=== PATIENT | male | born 1975 ===

== ENCOUNTER 2020-11-03 13:36 | Inpatient (IN) ==
[2020-11-03 20:05] LABS: Basophils % 0.1 % (0.0-0.8); Eosinophils % 0.3 % (0.00-10.9); Hematocrit 20.4 VOL% (42.0-52.0); Hemoglobin 6.8 GM/DL (14.0-18.0); Immature Granulocytes % 1.3 %; Immature Granulocytes Absolute 0.09 #; Lymphocytes # 0.6 10*3/uL (1.4-4.0); Lymphocytes % 8.4 % (21.2-54.2); Mean Corpuscular HGB Conc 33.3 GM/DL (32-36); Mean Corpuscular Volume 93.2 FL (87-102); Mean Platelet Volume 10.3 FL (9.6-12.0); Monocytes % 6.1 % (1.7-12.7); Neutrophils % 83.8 % (38.7-73.9); Platelet Count 125 T/CUMM (130-400); Red Blood Count 2.19 MC/CUMM (3.8-5.5); Red Cell Distribution Width 13.4 % (9.3-17.3); White Blood Count 7.2 T/CUMM (4-12)
[2020-11-03 20:15] LABS: Alanine Aminotransferase 15 U/L (16-61); Albumin 2.6 G/DL (3.4-5.0); Alkaline Phosphatase 74 U/L (45-117); Aspartate Amino Transferase 14 U/L (0-37); Bilirubin,Total < 0.39 MG/DL (0.2-1.0); Blood Urea Nitrogen 144 MG/DL (7-18); Carbon Dioxide 10 MMOL/L (21-32); Estimated Glom Filtration Rate 3 ML/MIN; Glucose 164 MG/DL (74-106); Osmolality,Calculated 327.5 MOS/KG (273-304); Sodium 139 MMOL/L (136-145); Total Protein 6.3 G/DL (5.0-7.5)
[2020-11-03 20:17] LABS: Calcium 5.8 MG/DL (8.5-10.1)
[2020-11-03 20:45] LABS: Partial Thromboplastin Time 33.8 SECS (23.9-33.8)
[2020-11-03] MEDS ORDERED: DEXTROSE 50% 25 GM/50 ML VIAL IV PRN (21:02)
[2020-11-03] MEDS ORDERED: GLUCAGON 1 MG VIAL IM PRN (21:02)
[2020-11-03] MEDS ORDERED: SODIUM POLYSTYRENE SULFATE 15 GM/60 ML BOTTLE PO ONE (21:12)
[2020-11-03] MEDS ORDERED: CALCIUM GLUCONATE 2,000 MG in SODIUM CHLORIDE 0.9% 100 ML IV ONE (22:00)
[2020-11-03 22:39] LABS: Bilirubin,Urine Negative (Negative); Blood, Urine Moderate mg/dL (Negative); Glucose,Urine (UA) 150 mg/dL (Negative); Ketones,Urine Negative (Negative); Nitrite,Urine Negative (Negative); Protein,Urine 100 MG/DL; RBC,Urine 23 /HPF (0-4); Squamous Epithelial Cell,Urine Occasional /HPF (0-10); Urine Appearance CLOUDY (Clear); Urine Color Yellow (Yellow); Urine Specific Gravity 1.011 (1.001-1.035); Urine Urobilinogen < 2.0 EU/DL (0.2-1.0); WBC,Urine 6 /HPF (0-6)
[2020-11-04] MEDS: INSULIN REGULAR 100 UNIT/ML SUBCUT SCH ×5 (00:16→20:16)
[2020-11-04 05:54] LABS: Basophils % 0.2 % (0.0-0.8); Eosinophils % 0.4 % (0.00-10.9); Hematocrit 21.2 VOL% (42.0-52.0); Hemoglobin 6.9 GM/DL (14.0-18.0); Immature Granulocytes % 1.4 %; Immature Granulocytes Absolute 0.11 #; Lymphocytes # 0.6 10*3/uL (1.4-4.0); Lymphocytes % 7.4 % (21.2-54.2); Mean Corpuscular HGB Conc 32.5 GM/DL (32-36); Mean Corpuscular Volume 93.4 FL (87-102); Mean Platelet Volume 10.9 FL (9.6-12.0); Monocytes % 6.3 % (1.7-12.7); Neutrophils % 84.3 % (38.7-73.9); Platelet Count 140 T/CUMM (130-400); Red Blood Count 2.27 MC/CUMM (3.8-5.5); Red Cell Distribution Width 13.2 % (9.3-17.3); White Blood Count 8.1 T/CUMM (4-12)
[2020-11-04 06:19] LABS: Risk Ratio 2.23; VLDL CHOLESTEROL 10.2 MG/DL
[2020-11-04 09:55] LABS: Calcium 6.3 MG/DL (8.5-10.1); Osmolality,Calculated 323.8 MOS/KG (273-304)
[2020-11-04 09:58] LABS: Potassium 6.1 MMOL/L (3.5-5.1)
[2020-11-04] MEDS: PANTOPRAZOLE 40 MG TABLET PO SCH (10:27)
[2020-11-04 11:19] LABS: Hepatitis B Core IgM Quant < 0.05 Index; Hepatitis B Surface Ag Quant < 0.10 Index; Hepatitis B Surface Ag Result Non-Reactive (NonReactive); Hepatitis C Virus Ab Quant 0.16 Index; Hepatitis C Virus Ab Result Non-Reactive (NonReactive)
[2020-11-04] MEDS: ONDANSETRON 4 MG/2 ML VIAL IV PRN (11:54)
[2020-11-04] MEDS ORDERED: ceFAZolin 1,000 MG in SYRINGE 1 EACH IV ONE (12:15)
[2020-11-04] MEDS ORDERED: SODIUM BICARBONATE 50 MEQ/50 ML SYRINGE IV ONE (14:36)
[2020-11-04] MEDS ORDERED: LIDOCAINE 1%/EPI INJ 20 ML VIAL ONE (15:11)
[2020-11-04] MEDS ORDERED: BUPIVACAINE MPF 0.25% 30 ML VIAL ONE (15:11)
[2020-11-04] MEDS ORDERED: HEPARIN 5,000 UNIT/1 ML VIAL ONE (15:26)
[2020-11-04] MEDS ORDERED: KETAMINE 500 MG/10 ML VIAL ONE (15:47)
[2020-11-04] MEDS ORDERED: DEXMEDETOMIDINE 200 MCG/2 ML VIAL ONE (15:47)
[2020-11-04] MEDS ORDERED: SODIUM CHLORIDE 0.9% 500 ML IV ONE (16:15)
[2020-11-04] MEDS ORDERED: hydrALAZINE 20 MG/1 ML VIAL ONE (16:17)
[2020-11-04] MEDS ORDERED: TISSUE ADHESIVE 1 EACH APPLICATOR TOP ONE (16:18)
[2020-11-04] MEDS: SODIUM BICARBONATE 650 MG TABLET PO SCH (22:18)
[2020-11-05 04:32] LABS: Basophils % 0.2 % (0.0-0.8); Eosinophils % 0.3 % (0.00-10.9); Hematocrit 18.2 VOL% (42.0-52.0); Immature Granulocytes % 0.6 %; Immature Granulocytes Absolute 0.04 #; Lymphocytes # 0.3 10*3/uL (1.4-4.0); Lymphocytes % 4.2 % (21.2-54.2); Mean Corpuscular HGB Conc 34.1 GM/DL (32-36); Mean Platelet Volume 10.8 FL (9.6-12.0); Monocytes % 6.4 % (1.7-12.7); Neutrophils % 88.3 % (38.7-73.9); Platelet Count 121 T/CUMM (130-400); White Blood Count 6.6 T/CUMM (4-12)
[2020-11-05 04:50] LABS: Calcium 6.2 MG/DL (8.5-10.1); Osmolality,Calculated 307.7 MOS/KG (273-304); Potassium 3.9 MMOL/L (3.5-5.1)
[2020-11-05 04:56] LABS: Hemoglobin 6.2 GM/DL (14.0-18.0)
[2020-11-05 05:03] LABS: Lymphocytes 4 % (20-55); Segmented Neutrophils 90 % (50-85); Total Cells Counted 100
[2020-11-05 05:04] LABS: Hypochromasia 2+; Microcytosis 1+
[2020-11-05 05:04] LABS: Albumin 2.6 G/DL (3.4-5.0); Calcium 6.1 MG/DL (8.5-10.1); Osmolality,Calculated 312.3 MOS/KG (273-304)
[2020-11-05] MEDS: INSULIN REGULAR 100 UNIT/ML SUBCUT SCH (08:01)
[2020-11-05] MEDS ORDERED: SODIUM CHLORIDE 0.9% 1,000 ML IV PRN (08:36)
[2020-11-05] MEDS: PANTOPRAZOLE 40 MG TABLET PO SCH (10:14)
[2020-11-05] MEDS: SODIUM BICARBONATE 650 MG TABLET PO SCH ×2 (10:15→20:51)
[2020-11-05] MEDS: carvediloL 12.5 MG TABLET PO SCH ×2 (14:50→20:51)
[2020-11-05] MEDS ORDERED: chlorproMAZINE 25 MG TABLET PO PRN (17:16)
[2020-11-05] MEDS: ISOSORBIDE MONONITRATE 30 MG TABLET PO SCH (20:52)
[2020-11-06 05:54] LABS: Basophils % 0.2 % (0.0-0.8); Eosinophils # 0.1 10*3/uL (0.0-0.87); Eosinophils % 1.4 % (0.00-10.9); Hematocrit 20.7 VOL% (42.0-52.0); Immature Granulocytes % 0.5 %; Immature Granulocytes Absolute 0.03 #; Lymphocytes # 0.5 10*3/uL (1.4-4.0); Lymphocytes % 7.5 % (21.2-54.2); Mean Corpuscular HGB Conc 33.8 GM/DL (32-36); Mean Platelet Volume 11.1 FL (9.6-12.0); Monocytes % 8.2 % (1.7-12.7); Neutrophils % 82.2 % (38.7-73.9); Platelet Count 105 T/CUMM (130-400); Red Cell Distribution Width 13.4 % (9.3-17.3); White Blood Count 6.6 T/CUMM (4-12)
[2020-11-06 06:12] LABS: Osmolality,Calculated 313.4 MOS/KG (273-304); Potassium 3.7 MMOL/L (3.5-5.1)
[2020-11-06 06:19] LABS: Albumin 2.4 G/DL (3.4-5.0); Osmolality,Calculated 309.5 MOS/KG (273-304); Potassium 3.7 MMOL/L (3.5-5.1)
[2020-11-06] MEDS: SODIUM BICARBONATE 650 MG TABLET PO SCH ×2 (08:28→21:23)
[2020-11-06] MEDS: ISOSORBIDE MONONITRATE 30 MG TABLET PO SCH ×2 (08:28→21:23)
[2020-11-06] MEDS: FAMOTIDINE 20 MG TABLET PO SCH (08:28)
[2020-11-06] MEDS: carvediloL 12.5 MG TABLET PO SCH ×2 (08:29→21:23)
[2020-11-06] MEDS ORDERED: METOCLOPRAMIDE 10 MG/10 ML UDCUP PO SCH (09:00)
[2020-11-06] MEDS ORDERED: PANTOPRAZOLE 40 MG TABLET PO SCH (09:00)
[2020-11-06] MEDS ORDERED: METOPROLOL TARTRATE 100 MG TABLET PO SCH (09:00)
[2020-11-06] MEDS ORDERED: HEPARIN 10,000 UNIT/10 ML VIAL IV SCH (13:00)
[2020-11-06] MEDS: ONDANSETRON 4 MG/2 ML VIAL IV PRN (23:28)
[2020-11-07 05:57] LABS: Basophils % 0.1 % (0.0-0.8); Eosinophils % 0.1 % (0.00-10.9); Hematocrit 24.1 VOL% (42.0-52.0); Hemoglobin 8.2 GM/DL (14.0-18.0); Immature Granulocytes % 0.5 %; Immature Granulocytes Absolute 0.04 #; Lymphocytes # 0.4 10*3/uL (1.4-4.0); Lymphocytes % 5.3 % (21.2-54.2); Mean Corpuscular Volume 88.9 FL (87-102); Mean Platelet Volume 11.1 FL (9.6-12.0); Platelet Count 119 T/CUMM (130-400); Red Blood Count 2.71 MC/CUMM (3.8-5.5); Red Cell Distribution Width 13.6 % (9.3-17.3); White Blood Count 7.8 T/CUMM (4-12)
[2020-11-07 06:16] LABS: Albumin 2.5 G/DL (3.4-5.0); Calcium 6.7 MG/DL (8.5-10.1); Osmolality,Calculated 288.7 MOS/KG (273-304); Potassium 3.7 MMOL/L (3.5-5.1)
[2020-11-07] MEDS: SEVELAMER CARBONATE 800 MG TABLET PO SCH ×3 (08:56→16:42)
[2020-11-07] MEDS: ISOSORBIDE MONONITRATE 30 MG TABLET PO SCH ×2 (08:56→21:14)
[2020-11-07] MEDS: SODIUM BICARBONATE 650 MG TABLET PO SCH ×2 (08:56→21:14)
[2020-11-07] MEDS: FAMOTIDINE 20 MG TABLET PO SCH (08:56)
[2020-11-07] MEDS: carvediloL 12.5 MG TABLET PO SCH ×2 (08:56→21:14)
[2020-11-07] MEDS: METOCLOPRAMIDE 10 MG/10 ML UDCUP PO SCH ×2 (16:42→21:14)
[2020-11-08 05:46] LABS: Basophils % 0.2 % (0.0-0.8); Eosinophils # 0.1 10*3/uL (0.0-0.87); Eosinophils % 1.6 % (0.00-10.9); Hematocrit 24.6 VOL% (42.0-52.0); Hemoglobin 8.2 GM/DL (14.0-18.0); Immature Granulocytes % 0.5 %; Immature Granulocytes Absolute 0.03 #; Lymphocytes # 0.7 10*3/uL (1.4-4.0); Lymphocytes % 12.3 % (21.2-54.2); Mean Corpuscular HGB Conc 33.3 GM/DL (32-36); Mean Corpuscular Volume 89.5 FL (87-102); Mean Platelet Volume 11.1 FL (9.6-12.0); Monocytes % 14.5 % (1.7-12.7); Neutrophils % 70.9 % (38.7-73.9); Platelet Count 113 T/CUMM (130-400); Red Blood Count 2.75 MC/CUMM (3.8-5.5); Red Cell Distribution Width 13.4 % (9.3-17.3); White Blood Count 5.8 T/CUMM (4-12)
[2020-11-08] MEDS: METOCLOPRAMIDE 10 MG/10 ML UDCUP PO SCH ×2 (08:58→12:56)
[2020-11-08] MEDS: ISOSORBIDE MONONITRATE 30 MG TABLET PO SCH (08:59)
[2020-11-08] MEDS: carvediloL 12.5 MG TABLET PO SCH (08:59)
[2020-11-08] MEDS: SEVELAMER CARBONATE 800 MG TABLET PO SCH ×2 (08:59→12:57)
[2020-11-08] MEDS: FAMOTIDINE 20 MG TABLET PO SCH (09:00)
[2020-11-08] MEDS: SODIUM BICARBONATE 650 MG TABLET PO SCH (09:02)
[2020-11-08 11:27] VITALS: BP 105/55
== END 2020-11-08 13:45 | disposition home or self-care (01) | DRG 674 ==
LOC: SUATTDRO 15:12 → N.3E 15:12
PROVIDERS: ADMIT Internal Medicine; ATTEND Family Medicine

== ENCOUNTER 2022-02-08 15:57 | Inpatient (IN) ==
[2022-02-08] MEDS ORDERED: ACETAMINOPHEN 500 MG TABLET PO STA (17:38)
[2022-02-08] MEDS ORDERED: VANCOMYCIN INJ 1,000 MG in SODIUM CHLORIDE 0.9% 250 ML IV STA (17:38)
[2022-02-08] MEDS ORDERED: PIPERACILLIN/TAZOBACTAM 3,375 MG in SODIUM CHLORIDE 0.9% 100 ML IV STA (17:38)
[2022-02-08 17:42] LABS: Basophils % 0.3 % (0.0-0.8); Eosinophils % 0.1 % (0.00-10.9); Hematocrit 31.2 VOL% (42.0-52.0); Hemoglobin 10.7 GM/DL (14.0-18.0); Immature Granulocytes % 0.8 %; Immature Granulocytes Absolute 0.11 #; Lymphocytes # 1.1 10*3/uL (1.4-4.0); Lymphocytes % 8.3 % (21.2-54.2); Mean Corpuscular HGB Conc 34.3 GM/DL (32-36); Mean Corpuscular Volume 96.9 FL (87-102); Mean Platelet Volume 10.6 FL (9.6-12.0); Monocytes # 0.9 10*3/uL (0.11-0.8); Monocytes % 6.6 % (1.7-12.7); Neutrophils % 83.9 % (38.7-73.9); Platelet Count 135 T/CUMM (130-400); Red Blood Count 3.22 MC/CUMM (3.8-5.5); White Blood Count 13.4 T/CUMM (4-12)
[2022-02-08] MEDS ORDERED: GLUCAGON 1 MG VIAL IM PRN ×2 (18:00)
[2022-02-08] MEDS ORDERED: ONDANSETRON 4 MG/2 ML VIAL IV PRN (18:00)
[2022-02-08] MEDS ORDERED: DEXTROSE 50% 25 GM/50 ML VIAL IV PRN (18:00)
[2022-02-08 18:04] LABS: Albumin 2.6 G/DL (3.4-5.0); Bilirubin,Total 0.4 MG/DL (0.20-1.00); Calcium 8.6 MG/DL (8.5-10.1); Osmolality,Calculated 282.2 MOS/KG (273-304); Potassium 3.6 MMOL/L (3.5-5.1); Total Protein 7.7 G/DL (6.4-8.2)
[2022-02-08] MEDS ORDERED: DEXTROSE 10% 250 ML BAG IV PRN (18:20)
[2022-02-08] MEDS ORDERED: VANCOMYCIN INJ 750 MG in SODIUM CHLORIDE 0.9% 250 ML IV PRN (19:39)
[2022-02-08] MEDS ORDERED: VANCOMYCIN INJ 1,000 MG in SODIUM CHLORIDE 0.9% 250 ML IV ONE (20:00)
[2022-02-08] MEDS ORDERED: ENOXAPARIN 30 MG/0.3 ML SYRINGE SUBCUT SCH (21:00)
[2022-02-08] MEDS ORDERED: PIPERACILLIN/TAZOBACTAM 3.375 MG in SODIUM CHLORIDE 0.9% 100 ML IV SCH (21:00)
[2022-02-08] MEDS: SEVELAMER CARBONATE 800 MG TABLET PO SCH (21:59)
[2022-02-08] MEDS: carvediloL 12.5 MG TABLET PO SCH (21:59)
[2022-02-08] MEDS: FERROUS SULFATE 325 MG TABLET PO SCH (21:59)
[2022-02-08] MEDS: INSULIN LISPRO 100 UNIT/ML SUBCUT SCH (22:10)
[2022-02-09] MEDS: ACETAMINOPHEN 325 MG TABLET PO PRN ×3 (03:36→18:26)
[2022-02-09 04:51] LABS: Basophils % 0.2 % (0.0-0.8); Eosinophils % 0.2 % (0.00-10.9); Hematocrit 26.8 VOL% (42.0-52.0); Hemoglobin 8.9 GM/DL (14.0-18.0); Immature Granulocytes % 1.1 %; Immature Granulocytes Absolute 0.14 #; Lymphocytes # 0.6 10*3/uL (1.4-4.0); Lymphocytes % 5.1 % (21.2-54.2); Mean Corpuscular HGB Conc 33.2 GM/DL (32-36); Mean Corpuscular Volume 99.3 FL (87-102); Mean Platelet Volume 10.6 FL (9.6-12.0); Monocytes # 0.7 10*3/uL (0.11-0.8); Monocytes % 5.9 % (1.7-12.7); Neutrophils % 87.5 % (38.7-73.9); Platelet Count 149 T/CUMM (130-400); Red Cell Distribution Width 14.2 % (9.3-17.3); White Blood Count 12.5 T/CUMM (4-12)
[2022-02-09 05:28] LABS: Albumin 2.6 G/DL (3.4-5.0); Bilirubin,Total 0.5 MG/DL (0.20-1.00); Calcium 8.5 MG/DL (8.5-10.1); Potassium 3.5 MMOL/L (3.5-5.1); Total Protein 7.2 G/DL (6.4-8.2)
[2022-02-09] MEDS: FERROUS SULFATE 325 MG TABLET PO SCH ×2 (08:18→20:41)
[2022-02-09] MEDS: INSULIN LISPRO 100 UNIT/ML SUBCUT SCH ×4 (08:18→20:41)
[2022-02-09] MEDS: ISOSORBIDE MONONITRATE 30 MG TABLET PO SCH (08:18)
[2022-02-09] MEDS: SEVELAMER CARBONATE 800 MG TABLET PO SCH ×3 (08:19→20:41)
[2022-02-09] MEDS: amLODIPine 2.5 MG TABLET PO SCH (08:19)
[2022-02-09] MEDS: carvediloL 12.5 MG TABLET PO SCH ×2 (08:19→20:41)
[2022-02-09] MEDS: PIPERACILLIN/TAZOBACTAM 3.375 MG in SODIUM CHLORIDE 0.9% 100 ML IV SCH ×2 (08:36→20:42)
[2022-02-10] MEDS: ACETAMINOPHEN 325 MG TABLET PO PRN ×2 (03:54→12:06)
[2022-02-10 09:30] LABS: Basophils % 0.3 % (0.0-0.8); Eosinophils % 0.2 % (0.00-10.9); Hematocrit 27.4 VOL% (42.0-52.0); Immature Granulocytes % 1.4 %; Immature Granulocytes Absolute 0.21 #; Lymphocytes # 1.1 10*3/uL (1.4-4.0); Lymphocytes % 7.5 % (21.2-54.2); Mean Corpuscular HGB Conc 32.8 GM/DL (32-36); Mean Corpuscular Volume 101.5 FL (87-102); Mean Platelet Volume 10.5 FL (9.6-12.0); Neutrophils % 83.6 % (38.7-73.9); Platelet Count 166 T/CUMM (130-400); Red Cell Distribution Width 14.5 % (9.3-17.3); White Blood Count 14.8 T/CUMM (4-12)
[2022-02-10] MEDS: FERROUS SULFATE 325 MG TABLET PO SCH ×2 (09:31→21:11)
[2022-02-10] MEDS: ISOSORBIDE MONONITRATE 30 MG TABLET PO SCH (09:31)
[2022-02-10] MEDS: amLODIPine 2.5 MG TABLET PO SCH (09:31)
[2022-02-10] MEDS: SEVELAMER CARBONATE 800 MG TABLET PO SCH ×3 (09:31→21:11)
[2022-02-10] MEDS: carvediloL 12.5 MG TABLET PO SCH ×2 (09:31→21:11)
[2022-02-10] MEDS: PIPERACILLIN/TAZOBACTAM 3.375 MG in SODIUM CHLORIDE 0.9% 100 ML IV SCH ×2 (09:46→22:02)
[2022-02-10 09:49] LABS: Albumin 2.6 G/DL (3.4-5.0); Bilirubin,Total 0.4 MG/DL (0.20-1.00); Calcium 8.9 MG/DL (8.5-10.1); Potassium 3.7 MMOL/L (3.5-5.1); Total Protein 7.5 G/DL (6.4-8.2)
[2022-02-10] MEDS: INSULIN LISPRO 100 UNIT/ML SUBCUT SCH ×4 (09:59→22:02)
[2022-02-10] MEDS: LOPERAMIDE 2 MG CAPSULE PO PRN (11:17)
[2022-02-10 20:43] LABS: Hematocrit 27.7 VOL% (42.0-52.0)
[2022-02-11 05:54] LABS: Basophils % 0.3 % (0.0-0.8); Eosinophils # 0.1 10*3/uL (0.0-0.87); Eosinophils % 0.3 % (0.00-10.9); Hematocrit 27.6 VOL% (42.0-52.0); Hemoglobin 8.9 GM/DL (14.0-18.0); Immature Granulocytes % 0.7 %; Lymphocytes # 1.6 10*3/uL (1.4-4.0); Mean Corpuscular HGB Conc 32.2 GM/DL (32-36); Mean Corpuscular Volume 102.2 FL (87-102); Mean Platelet Volume 10.9 FL (9.6-12.0); Monocytes # 1.1 10*3/uL (0.11-0.8); Monocytes % 7.5 % (1.7-12.7); Neutrophils % 80.2 % (38.7-73.9); Platelet Count 167 T/CUMM (130-400); Red Cell Distribution Width 14.6 % (9.3-17.3); White Blood Count 14.4 T/CUMM (4-12)
[2022-02-11 06:17] LABS: Albumin 2.5 G/DL (3.4-5.0); Bilirubin,Total 0.4 MG/DL (0.20-1.00); Calcium 8.4 MG/DL (8.5-10.1); Osmolality,Calculated 285.1 MOS/KG (273-304); Potassium 3.5 MMOL/L (3.5-5.1); Total Protein 7.7 G/DL (6.4-8.2)
[2022-02-11] MEDS: INSULIN LISPRO 100 UNIT/ML SUBCUT SCH ×4 (08:26→20:59)
[2022-02-11] MEDS: ISOSORBIDE MONONITRATE 30 MG TABLET PO SCH (08:26)
[2022-02-11] MEDS: amLODIPine 2.5 MG TABLET PO SCH (08:26)
[2022-02-11] MEDS: carvediloL 12.5 MG TABLET PO SCH ×2 (08:26→20:52)
[2022-02-11] MEDS: FERROUS SULFATE 325 MG TABLET PO SCH ×2 (08:27→16:05)
[2022-02-11] MEDS: PIPERACILLIN/TAZOBACTAM 3.375 MG in SODIUM CHLORIDE 0.9% 100 ML IV SCH (08:27)
[2022-02-11] MEDS: SEVELAMER CARBONATE 800 MG TABLET PO SCH ×3 (08:27→16:05)
[2022-02-11] MEDS: PANTOPRAZOLE 40 MG VIAL IV SCH ×2 (11:58→20:50)
[2022-02-11] MEDS ORDERED: VANCOMYCIN INJ 750 MG in SODIUM CHLORIDE 0.9% 250 ML IV ONE (12:00)
[2022-02-11] MEDS ORDERED: PHENYLEPHRINE 1 MG/10 ML SYRINGE IV ONE (15:51)
[2022-02-11] MEDS ORDERED: propofoL 200 MG/20 ML VIAL IV ONE (15:51)
[2022-02-11] MEDS ORDERED: SUCCINYLCHOLINE 200 MG/10 ML VIAL ONE ×2 (15:51→16:27)
[2022-02-11] MEDS ORDERED: LIDOCAINE 2% 5 ML VIAL ONE (15:51)
[2022-02-11] MEDS ORDERED: ETOMIDATE 40 MG/20 ML VIAL IV ONE (15:51)
[2022-02-11] MEDS ORDERED: fentaNYL 100 MCG/2 ML VIAL ONE (15:51)
[2022-02-11] MEDS ORDERED: MIDAZOLAM 2 MG/2 ML VIAL ONE (16:05)
[2022-02-11] MEDS ORDERED: KETAMINE 500 MG/10 ML VIAL ONE (16:06)
[2022-02-11] MEDS ORDERED: BUPIVACAINE MPF 0.25% 10 ML VIAL ONE (16:11)
[2022-02-11] MEDS: ACETAMINOPHEN 325 MG TABLET PO PRN (20:49)
[2022-02-11] MEDS: PIPERACILLIN/TAZOBACTAM 3,375 MG in SODIUM CHLORIDE 0.9% 100 ML IV SCH (20:51)
[2022-02-12 05:48] LABS: Basophils % 0.3 % (0.0-0.8); Eosinophils # 0.1 10*3/uL (0.0-0.87); Eosinophils % 0.3 % (0.00-10.9); Hematocrit 26.4 VOL% (42.0-52.0); Hemoglobin 8.5 GM/DL (14.0-18.0); Immature Granulocytes % 0.8 %; Immature Granulocytes Absolute 0.12 #; Lymphocytes # 1.3 10*3/uL (1.4-4.0); Lymphocytes % 9.2 % (21.2-54.2); Mean Corpuscular HGB Conc 32.2 GM/DL (32-36); Mean Corpuscular Volume 101.1 FL (87-102); Mean Platelet Volume 10.8 FL (9.6-12.0); Monocytes # 1.4 10*3/uL (0.11-0.8); Monocytes % 9.8 % (1.7-12.7); Neutrophils % 79.6 % (38.7-73.9); Platelet Count 176 T/CUMM (130-400); Red Blood Count 2.61 MC/CUMM (3.8-5.5); Red Cell Distribution Width 14.4 % (9.3-17.3); White Blood Count 14.3 T/CUMM (4-12)
[2022-02-12 06:09] LABS: Albumin 2.2 G/DL (3.4-5.0); Bilirubin,Total 0.4 MG/DL (0.20-1.00); Calcium 8.3 MG/DL (8.5-10.1); Osmolality,Calculated 283.4 MOS/KG (273-304); Potassium 3.6 MMOL/L (3.5-5.1); Total Protein 7.2 G/DL (6.4-8.2)
[2022-02-12] MEDS: INSULIN LISPRO 100 UNIT/ML SUBCUT SCH ×4 (07:39→21:00)
[2022-02-12] MEDS: PIPERACILLIN/TAZOBACTAM 3,375 MG in SODIUM CHLORIDE 0.9% 100 ML IV SCH ×2 (08:46→21:00)
[2022-02-12] MEDS: PANTOPRAZOLE 40 MG VIAL IV SCH ×2 (08:46→20:57)
[2022-02-12] MEDS: FERROUS SULFATE 325 MG TABLET PO SCH (08:47)
[2022-02-12] MEDS: carvediloL 12.5 MG TABLET PO SCH ×2 (08:47→16:57)
[2022-02-12] MEDS: SEVELAMER CARBONATE 800 MG TABLET PO SCH ×3 (08:47→16:57)
[2022-02-12] MEDS: ISOSORBIDE MONONITRATE 30 MG TABLET PO SCH (08:47)
[2022-02-12] MEDS: amLODIPine 2.5 MG TABLET PO SCH (08:47)
[2022-02-12] MEDS: SODIUM HYPOCHLORITE 0.25% IRRIG 473 ML BOTTLE TOP SCH (14:56)
[2022-02-12] MEDS ORDERED: BISACODYL 5 MG TABLET PO ONE (15:00)
[2022-02-12] MEDS: ACETAMINOPHEN 325 MG TABLET PO PRN ×2 (16:58→20:55)
[2022-02-12] MEDS ORDERED: VANCOMYCIN INJ 750 MG in SODIUM CHLORIDE 0.9% 250 ML IV ONE (17:00)
[2022-02-12] MEDS ORDERED: POLYETHYLENE GLYCOL POWDER 255 GM BOTTLE PO ONE (18:00)
[2022-02-12] MEDS: SACUBITRIL/VALSARTAN 49-51 MG TABLET PO SCH (20:56)
[2022-02-13 04:30] LABS: Basophils % 0.3 % (0.0-0.8); Eosinophils # 0.1 10*3/uL (0.0-0.87); Eosinophils % 0.8 % (0.00-10.9); Hematocrit 26.5 VOL% (42.0-52.0); Hemoglobin 8.4 GM/DL (14.0-18.0); Immature Granulocytes % 0.9 %; Immature Granulocytes Absolute 0.11 #; Lymphocytes # 0.9 10*3/uL (1.4-4.0); Lymphocytes % 7.2 % (21.2-54.2); Mean Corpuscular HGB Conc 31.7 GM/DL (32-36); Mean Corpuscular Volume 101.1 FL (87-102); Mean Platelet Volume 11.3 FL (9.6-12.0); Monocytes % 8.1 % (1.7-12.7); Neutrophils % 82.7 % (38.7-73.9); Platelet Count 182 T/CUMM (130-400); Red Blood Count 2.62 MC/CUMM (3.8-5.5); Red Cell Distribution Width 14.4 % (9.3-17.3)
[2022-02-13 04:49] LABS: INR 1.1; PT Patient Result 11.9 SECS (10.5-12.0)
[2022-02-13 04:56] LABS: Albumin 2.1 G/DL (3.4-5.0); Bilirubin,Total 0.4 MG/DL (0.20-1.00); Calcium 8.3 MG/DL (8.5-10.1); Osmolality,Calculated 276.2 MOS/KG (273-304); Total Protein 7.3 G/DL (6.4-8.2)
[2022-02-13] MEDS ORDERED: POLYETHYLENE GLYCOL POWDER 255 GM BOTTLE PO ONE (05:00)
[2022-02-13] MEDS ORDERED: POTASSIUM CHLORIDE RIDER 10 MEQ/100 ML PREMIX IV PRN (07:21)
[2022-02-13] MEDS ORDERED: POTASSIUM CHLORIDE 20 MEQ TABLET PO PRN (07:21)
[2022-02-13] MEDS ORDERED: POTASSIUM CHLORIDE 20 MEQ TABLET PO ONE (07:30)
[2022-02-13] MEDS: INSULIN LISPRO 100 UNIT/ML SUBCUT SCH ×4 (07:30→22:18)
[2022-02-13] MEDS: carvediloL 12.5 MG TABLET PO SCH ×2 (08:00→17:30)
[2022-02-13] MEDS: SEVELAMER CARBONATE 800 MG TABLET PO SCH ×3 (08:00→17:57)
[2022-02-13] MEDS: amLODIPine 2.5 MG TABLET PO SCH (09:00)
[2022-02-13] MEDS: SODIUM HYPOCHLORITE 0.25% IRRIG 473 ML BOTTLE TOP SCH (09:00)
[2022-02-13] MEDS: SACUBITRIL/VALSARTAN 49-51 MG TABLET PO SCH ×2 (09:00→21:56)
[2022-02-13] MEDS: PANTOPRAZOLE 40 MG VIAL IV SCH ×2 (09:00→21:57)
[2022-02-13] MEDS: ISOSORBIDE MONONITRATE 30 MG TABLET PO SCH (09:00)
[2022-02-13] MEDS: SODIUM CHLORIDE 0.9% 1,000 ML IV SCH (12:02)
[2022-02-13] MEDS ORDERED: propofoL 200 MG/20 ML VIAL IV ONE ×2 (13:14)
[2022-02-13] MEDS ORDERED: LIDOCAINE 2% 5 ML VIAL ONE (13:14)
[2022-02-13] MEDS ORDERED: GLUCAGON 1 MG VIAL IM PRN (15:36)
[2022-02-13] MEDS ORDERED: DEXTROSE 10% 250 ML BAG IV PRN (15:41)
[2022-02-13] MEDS: PIPERACILLIN/TAZOBACTAM 3,375 MG in SODIUM CHLORIDE 0.9% 100 ML IV SCH (17:41)
[2022-02-13] MEDS: LOPERAMIDE 2 MG CAPSULE PO PRN (22:17)
[2022-02-14] MEDS: PIPERACILLIN/TAZOBACTAM 3,375 MG in SODIUM CHLORIDE 0.9% 100 ML IV SCH ×2 (04:54→20:00)
[2022-02-14 05:01] LABS: Basophils % 0.4 % (0.0-0.8); Eosinophils # 0.2 10*3/uL (0.0-0.87); Hematocrit 28.4 VOL% (42.0-52.0); Hemoglobin 9.4 GM/DL (14.0-18.0); Immature Granulocytes % 0.6 %; Immature Granulocytes Absolute 0.06 #; Lymphocytes # 1.3 10*3/uL (1.4-4.0); Lymphocytes % 11.7 % (21.2-54.2); Mean Corpuscular HGB Conc 33.1 GM/DL (32-36); Mean Corpuscular Volume 100.4 FL (87-102); Mean Platelet Volume 10.8 FL (9.6-12.0); Monocytes # 1.1 10*3/uL (0.11-0.8); Monocytes % 10.4 % (1.7-12.7); Neutrophils % 74.9 % (38.7-73.9); Platelet Count 232 T/CUMM (130-400); Red Blood Count 2.83 MC/CUMM (3.8-5.5); Red Cell Distribution Width 14.2 % (9.3-17.3); White Blood Count 10.9 T/CUMM (4-12)
[2022-02-14 05:24] LABS: Alanine Aminotransferase 15 U/L (16-61); Albumin 2.2 G/DL (3.4-5.0); Alkaline Phosphatase 91 U/L (45-117); Aspartate Amino Transferase 16 U/L (0-37); Bilirubin,Total < 0.39 MG/DL (0.20-1.00); Blood Urea Nitrogen 44 MG/DL (7-18); Calcium 8.7 MG/DL (8.5-10.1); Carbon Dioxide 21 MMOL/L (21-32); Chloride 102 MMOL/L (98-107); Glucose 151 MG/DL (74-106); Osmolality,Calculated 281.2 MOS/KG (273-304); Potassium 3.9 MMOL/L (3.5-5.1); Sodium 134 MMOL/L (136-145); Total Protein 7.9 G/DL (6.4-8.2)
[2022-02-14] MEDS: SEVELAMER CARBONATE 800 MG TABLET PO SCH ×3 (08:47→17:14)
[2022-02-14] MEDS: PANTOPRAZOLE 40 MG VIAL IV SCH ×2 (08:48→21:58)
[2022-02-14] MEDS: INSULIN LISPRO 100 UNIT/ML SUBCUT SCH ×4 (08:48→22:03)
[2022-02-14] MEDS: carvediloL 12.5 MG TABLET PO SCH ×2 (12:49→17:14)
[2022-02-14] MEDS: SODIUM CHLORIDE 0.9% 1,000 ML IV SCH (12:50)
[2022-02-14] MEDS: SACUBITRIL/VALSARTAN 49-51 MG TABLET PO SCH ×2 (12:50→21:57)
[2022-02-14] MEDS: ISOSORBIDE MONONITRATE 30 MG TABLET PO SCH (13:20)
[2022-02-14] MEDS: SODIUM HYPOCHLORITE 0.25% IRRIG 473 ML BOTTLE TOP SCH (13:20)
[2022-02-14] MEDS: LOPERAMIDE 2 MG CAPSULE PO SCH ×2 (15:28→21:57)
[2022-02-14] MEDS ORDERED: VANCOMYCIN INJ 750 MG in SODIUM CHLORIDE 0.9% 250 ML IV ONE (17:00)
[2022-02-15] MEDS: LOPERAMIDE 2 MG CAPSULE PO SCH ×4 (02:23→20:56)
[2022-02-15 05:56] LABS: Basophils % 0.2 % (0.0-0.8); Eosinophils # 0.3 10*3/uL (0.0-0.87); Eosinophils % 2.4 % (0.00-10.9); Hematocrit 28.4 VOL% (42.0-52.0); Hemoglobin 9.2 GM/DL (14.0-18.0); Immature Granulocytes % 0.8 %; Immature Granulocytes Absolute 0.09 #; Mean Corpuscular HGB Conc 32.4 GM/DL (32-36); Mean Corpuscular Volume 101.4 FL (87-102); Mean Platelet Volume 10.6 FL (9.6-12.0); Monocytes # 1.3 10*3/uL (0.11-0.8); Monocytes % 11.1 % (1.7-12.7); Neutrophils % 76.5 % (38.7-73.9); Platelet Count 228 T/CUMM (130-400); Red Cell Distribution Width 14.2 % (9.3-17.3); White Blood Count 11.5 T/CUMM (4-12)
[2022-02-15 06:17] LABS: Alanine Aminotransferase 14 U/L (16-61); Albumin 2.2 G/DL (3.4-5.0); Alkaline Phosphatase 110 U/L (45-117); Aspartate Amino Transferase 14 U/L (0-37); Bilirubin,Total < 0.39 MG/DL (0.20-1.00); Blood Urea Nitrogen 28 MG/DL (7-18); Calcium 8.9 MG/DL (8.5-10.1); Carbon Dioxide 25 MMOL/L (21-32); Chloride 103 MMOL/L (98-107); Glucose 174 MG/DL (74-106); Osmolality,Calculated 284.7 MOS/KG (273-304); Sodium 138 MMOL/L (136-145)
[2022-02-15] MEDS: INSULIN LISPRO 100 UNIT/ML SUBCUT SCH ×4 (08:55→21:26)
[2022-02-15] MEDS: SEVELAMER CARBONATE 800 MG TABLET PO SCH ×3 (08:56→17:40)
[2022-02-15] MEDS: SODIUM HYPOCHLORITE 0.25% IRRIG 473 ML BOTTLE TOP SCH (08:57)
[2022-02-15] MEDS: ISOSORBIDE MONONITRATE 30 MG TABLET PO SCH (09:02)
[2022-02-15] MEDS: PANTOPRAZOLE 40 MG VIAL IV SCH ×2 (09:03→20:56)
[2022-02-15] MEDS: SACUBITRIL/VALSARTAN 49-51 MG TABLET PO SCH ×2 (09:03→20:55)
[2022-02-15] MEDS: carvediloL 12.5 MG TABLET PO SCH ×2 (09:03→17:40)
[2022-02-15] MEDS: PIPERACILLIN/TAZOBACTAM 3,375 MG in SODIUM CHLORIDE 0.9% 100 ML IV SCH ×2 (09:04→20:54)
[2022-02-15] MEDS ORDERED: BUPIVACAINE MPF 0.25% 10 ML VIAL ONE (10:54)
[2022-02-15] MEDS ORDERED: LIDOCAINE 1%/EPI INJ 20 ML VIAL ONE (10:54)
[2022-02-15] MEDS ORDERED: MIDAZOLAM 2 MG/2 ML VIAL ONE (11:22)
[2022-02-15] MEDS ORDERED: fentaNYL 100 MCG/2 ML VIAL ONE (11:22)
[2022-02-15] MEDS ORDERED: propofoL 200 MG/20 ML VIAL IV ONE (11:23)
[2022-02-15] MEDS ORDERED: LIDOCAINE 2% 5 ML VIAL ONE (11:23)
[2022-02-15] MEDS ORDERED: SEVOFLURANE 1 UNIT/15 MINUTE INH ONE (12:03)
[2022-02-15] MEDS ORDERED: ONDANSETRON 4 MG/2 ML VIAL ONE (12:03)
[2022-02-15] MEDS ORDERED: SUCCINYLCHOLINE 200 MG/10 ML VIAL ONE (12:03)
[2022-02-15] MEDS ORDERED: ROCURONIUM 50 MG/5 ML VIAL IV ONE (12:03)
[2022-02-15] MEDS ORDERED: ONDANSETRON 4 MG/2 ML VIAL IV PRN (12:27)
[2022-02-15] MEDS: SODIUM CHLORIDE 0.9% 1,000 ML IV SCH (12:27)
[2022-02-15] MEDS ORDERED: HYDROmorphone 1 MG/1 ML SYRINGE IV PRN (12:27)
[2022-02-16] MEDS: LOPERAMIDE 2 MG CAPSULE PO SCH ×4 (01:53→21:02)
[2022-02-16] MEDS: ACETAMINOPHEN 325 MG TABLET PO PRN ×2 (02:08→21:02)
[2022-02-16] MEDS: PIPERACILLIN/TAZOBACTAM 3,375 MG in SODIUM CHLORIDE 0.9% 100 ML IV SCH ×2 (10:54→20:59)
[2022-02-16] MEDS: SODIUM CHLORIDE 0.9% 1,000 ML IV SCH (10:54)
[2022-02-16] MEDS: SEVELAMER CARBONATE 800 MG TABLET PO SCH ×3 (10:54→17:36)
[2022-02-16] MEDS: INSULIN LISPRO 100 UNIT/ML SUBCUT SCH ×3 (10:54→17:59)
[2022-02-16] MEDS: carvediloL 12.5 MG TABLET PO SCH ×2 (10:54→17:59)
[2022-02-16] MEDS: SODIUM HYPOCHLORITE 0.25% IRRIG 473 ML BOTTLE TOP SCH (10:55)
[2022-02-16] MEDS: PANTOPRAZOLE 40 MG VIAL IV SCH ×2 (10:55→21:02)
[2022-02-16] MEDS: ISOSORBIDE MONONITRATE 30 MG TABLET PO SCH (10:55)
[2022-02-16] MEDS: SACUBITRIL/VALSARTAN 49-51 MG TABLET PO SCH ×2 (10:55→21:01)
[2022-02-16] MEDS ORDERED: VANCOMYCIN INJ 750 MG in SODIUM CHLORIDE 0.9% 250 ML IV ONE (17:00)
[2022-02-17] MEDS: LOPERAMIDE 2 MG CAPSULE PO SCH ×4 (01:27→21:21)
[2022-02-17] MEDS: INSULIN LISPRO 100 UNIT/ML SUBCUT SCH ×5 (01:29→21:21)
[2022-02-17 06:12] LABS: Basophils % 0.2 % (0.0-0.8); Eosinophils # 0.3 10*3/uL (0.0-0.87); Eosinophils % 2.5 % (0.00-10.9); Hematocrit 25.9 VOL% (42.0-52.0); Hemoglobin 8.4 GM/DL (14.0-18.0); Immature Granulocytes % 0.6 %; Immature Granulocytes Absolute 0.07 #; Lymphocytes # 1.3 10*3/uL (1.4-4.0); Lymphocytes % 10.2 % (21.2-54.2); Mean Corpuscular HGB Conc 32.4 GM/DL (32-36); Mean Platelet Volume 10.8 FL (9.6-12.0); Monocytes # 1.2 10*3/uL (0.11-0.8); Monocytes % 9.7 % (1.7-12.7); Neutrophils % 76.8 % (38.7-73.9); Platelet Count 218 T/CUMM (130-400); Red Blood Count 2.59 MC/CUMM (3.8-5.5); Red Cell Distribution Width 14.3 % (9.3-17.3); White Blood Count 12.3 T/CUMM (4-12)
[2022-02-17 06:34] LABS: Alanine Aminotransferase 15 U/L (16-61); Alkaline Phosphatase 101 U/L (45-117); Aspartate Amino Transferase 13 U/L (0-37); Bilirubin,Total < 0.39 MG/DL (0.20-1.00); Blood Urea Nitrogen 48 MG/DL (7-18); Calcium 8.6 MG/DL (8.5-10.1); Carbon Dioxide 23 MMOL/L (21-32); Chloride 102 MMOL/L (98-107); Glucose 184 MG/DL (74-106); Osmolality,Calculated 287.1 MOS/KG (273-304); Potassium 3.3 MMOL/L (3.5-5.1); Sodium 135 MMOL/L (136-145); Total Protein 7.4 G/DL (6.4-8.2)
[2022-02-17] MEDS: SEVELAMER CARBONATE 800 MG TABLET PO SCH ×3 (09:44→18:12)
[2022-02-17] MEDS: SACUBITRIL/VALSARTAN 49-51 MG TABLET PO SCH ×2 (09:44→21:21)
[2022-02-17] MEDS: PANTOPRAZOLE 40 MG VIAL IV SCH ×2 (09:45→21:22)
[2022-02-17] MEDS: ISOSORBIDE MONONITRATE 30 MG TABLET PO SCH (09:45)
[2022-02-17] MEDS: carvediloL 12.5 MG TABLET PO SCH ×2 (09:45→18:12)
[2022-02-17] MEDS: PIPERACILLIN/TAZOBACTAM 3,375 MG in SODIUM CHLORIDE 0.9% 100 ML IV SCH ×2 (09:45→21:26)
[2022-02-17] MEDS: SODIUM HYPOCHLORITE 0.25% IRRIG 473 ML BOTTLE TOP SCH (09:47)
[2022-02-17] MEDS: SODIUM CHLORIDE 0.9% 1,000 ML IV SCH (09:59)
[2022-02-18] MEDS: LOPERAMIDE 2 MG CAPSULE PO SCH ×4 (01:36→21:20)
[2022-02-18 05:00] LABS: Basophils % 0.4 % (0.0-0.8); Eosinophils # 0.3 10*3/uL (0.0-0.87); Hematocrit 23.6 VOL% (42.0-52.0); Hemoglobin 7.7 GM/DL (14.0-18.0); Immature Granulocytes % 0.5 %; Immature Granulocytes Absolute 0.05 #; Lymphocytes # 1.4 10*3/uL (1.4-4.0); Lymphocytes % 12.8 % (21.2-54.2); Mean Corpuscular HGB Conc 32.6 GM/DL (32-36); Mean Platelet Volume 10.7 FL (9.6-12.0); Monocytes # 0.9 10*3/uL (0.11-0.8); Monocytes % 8.2 % (1.7-12.7); Neutrophils % 75.1 % (38.7-73.9); Platelet Count 187 T/CUMM (130-400); Red Blood Count 2.36 MC/CUMM (3.8-5.5); Red Cell Distribution Width 14.4 % (9.3-17.3); White Blood Count 10.7 T/CUMM (4-12)
[2022-02-18 05:20] LABS: Alanine Aminotransferase 14 U/L (16-61); Albumin 1.9 G/DL (3.4-5.0); Alkaline Phosphatase 106 U/L (45-117); Aspartate Amino Transferase 17 U/L (0-37); Bilirubin,Total < 0.39 MG/DL (0.20-1.00); Blood Urea Nitrogen 62 MG/DL (7-18); Calcium 8.8 MG/DL (8.5-10.1); Carbon Dioxide 20 MMOL/L (21-32); Chloride 102 MMOL/L (98-107); Glucose 244 MG/DL (74-106); Osmolality,Calculated 291.4 MOS/KG (273-304); Potassium 3.7 MMOL/L (3.5-5.1); Sodium 133 MMOL/L (136-145); Total Protein 7.2 G/DL (6.4-8.2)
[2022-02-18 05:26] LABS: Anisocytosis 1+; Eosinophils 2 % (0-10); Lymphocytes 11 % (20-55); Ovalocytes Few; Platelet Estimate Normal; Total Cells Counted 100
[2022-02-18 05:27] LABS: Hypochromia Slight; Macrocytosis 1+
[2022-02-18] MEDS: carvediloL 12.5 MG TABLET PO SCH ×2 (09:45→16:50)
[2022-02-18] MEDS: SACUBITRIL/VALSARTAN 49-51 MG TABLET PO SCH ×2 (09:45→21:20)
[2022-02-18] MEDS: PANTOPRAZOLE 40 MG VIAL IV SCH ×2 (09:45→21:19)
[2022-02-18] MEDS: SEVELAMER CARBONATE 800 MG TABLET PO SCH ×3 (09:45→16:50)
[2022-02-18] MEDS: ISOSORBIDE MONONITRATE 30 MG TABLET PO SCH (09:45)
[2022-02-18] MEDS: PIPERACILLIN/TAZOBACTAM 3,375 MG in SODIUM CHLORIDE 0.9% 100 ML IV SCH ×2 (09:46→21:18)
[2022-02-18] MEDS: INSULIN LISPRO 100 UNIT/ML SUBCUT SCH ×4 (09:46→21:22)
[2022-02-18] MEDS: SODIUM HYPOCHLORITE 0.25% IRRIG 473 ML BOTTLE TOP SCH (09:47)
[2022-02-19] MEDS: LOPERAMIDE 2 MG CAPSULE PO SCH ×4 (01:36→20:48)
[2022-02-19 05:03] LABS: Basophils # 0.1 10*3/uL (0.0-0.2); Basophils % 0.5 % (0.0-0.8); Eosinophils # 0.3 10*3/uL (0.0-0.87); Eosinophils % 2.7 % (0.00-10.9); Hematocrit 28.1 VOL% (42.0-52.0); Hemoglobin 8.9 GM/DL (14.0-18.0); Immature Granulocytes % 0.5 %; Immature Granulocytes Absolute 0.05 #; Lymphocytes # 1.4 10*3/uL (1.4-4.0); Lymphocytes % 14.6 % (21.2-54.2); Mean Corpuscular HGB Conc 31.7 GM/DL (32-36); Mean Corpuscular Volume 101.4 FL (87-102); Mean Platelet Volume 10.9 FL (9.6-12.0); Monocytes # 0.9 10*3/uL (0.11-0.8); Monocytes % 9.1 % (1.7-12.7); Neutrophils % 72.6 % (38.7-73.9); Platelet Count 254 T/CUMM (130-400); Red Blood Count 2.77 MC/CUMM (3.8-5.5); Red Cell Distribution Width 14.2 % (9.3-17.3); White Blood Count 9.6 T/CUMM (4-12)
[2022-02-19 05:33] LABS: Alanine Aminotransferase 16 U/L (16-61); Albumin 2.1 G/DL (3.4-5.0); Alkaline Phosphatase 115 U/L (45-117); Aspartate Amino Transferase 14 U/L (0-37); Bilirubin,Total < 0.39 MG/DL (0.20-1.00); Blood Urea Nitrogen 33 MG/DL (7-18); Carbon Dioxide 25 MMOL/L (21-32); Chloride 103 MMOL/L (98-107); Glucose 224 MG/DL (74-106); Osmolality,Calculated 286.8 MOS/KG (273-304); Potassium 3.5 MMOL/L (3.5-5.1); Sodium 137 MMOL/L (136-145); Total Protein 8.1 G/DL (6.4-8.2)
[2022-02-19] MEDS: INSULIN LISPRO 100 UNIT/ML SUBCUT SCH ×4 (09:05→20:48)
[2022-02-19] MEDS: PANTOPRAZOLE 40 MG VIAL IV SCH ×2 (09:14→20:47)
[2022-02-19] MEDS: PIPERACILLIN/TAZOBACTAM 3,375 MG in SODIUM CHLORIDE 0.9% 100 ML IV SCH ×2 (09:14→20:46)
[2022-02-19] MEDS: SACUBITRIL/VALSARTAN 49-51 MG TABLET PO SCH ×2 (09:16→20:48)
[2022-02-19] MEDS: carvediloL 12.5 MG TABLET PO SCH ×2 (09:16→17:53)
[2022-02-19] MEDS: ISOSORBIDE MONONITRATE 30 MG TABLET PO SCH (09:16)
[2022-02-19] MEDS: SEVELAMER CARBONATE 800 MG TABLET PO SCH ×3 (09:17→17:53)
[2022-02-19] MEDS: SODIUM HYPOCHLORITE 0.25% IRRIG 473 ML BOTTLE TOP SCH (09:17)
[2022-02-19] MEDS ORDERED: fentaNYL 100 MCG/2 ML VIAL IV ONE (09:36)
[2022-02-19] MEDS ORDERED: DIAZEPAM 5 MG TABLET PO ONE (09:36)
[2022-02-19] MEDS ORDERED: MIDAZOLAM 2 MG/2 ML VIAL IV ONE (09:36)
[2022-02-19] MEDS: SODIUM CHLORIDE 0.45% 1,000 ML IV SCH (13:10)
[2022-02-19] MEDS ORDERED: HEPARIN/NACL 0.9% 2 UNITS/ML 4,000 UNIT/2,000 ML BAG IV ONE (13:55)
[2022-02-19] MEDS ORDERED: HEPARIN 5,000 UNIT/1 ML VIAL ONE (13:58)
[2022-02-20] MEDS: LOPERAMIDE 2 MG CAPSULE PO SCH ×5 (02:01→21:00)
[2022-02-20 04:39] LABS: Basophils % 0.4 % (0.0-0.8); Eosinophils # 0.2 10*3/uL (0.0-0.87); Eosinophils % 2.5 % (0.00-10.9); Hematocrit 24.3 VOL% (42.0-52.0); Hemoglobin 7.7 GM/DL (14.0-18.0); Immature Granulocytes % 0.5 %; Immature Granulocytes Absolute 0.05 #; Lymphocytes # 1.1 10*3/uL (1.4-4.0); Lymphocytes % 12.3 % (21.2-54.2); Mean Corpuscular HGB Conc 31.7 GM/DL (32-36); Mean Corpuscular Volume 101.3 FL (87-102); Mean Platelet Volume 10.4 FL (9.6-12.0); Monocytes # 0.9 10*3/uL (0.11-0.8); Neutrophils % 74.3 % (38.7-73.9); Platelet Count 213 T/CUMM (130-400); Red Cell Distribution Width 14.1 % (9.3-17.3); White Blood Count 9.3 T/CUMM (4-12)
[2022-02-20 05:07] LABS: Alanine Aminotransferase 18 U/L (16-61); Albumin 1.9 G/DL (3.4-5.0); Alkaline Phosphatase 118 U/L (45-117); Aspartate Amino Transferase 17 U/L (0-37); Bilirubin,Total < 0.39 MG/DL (0.20-1.00); Blood Urea Nitrogen 51 MG/DL (7-18); Calcium 8.7 MG/DL (8.5-10.1); Carbon Dioxide 23 MMOL/L (21-32); Chloride 102 MMOL/L (98-107); Glucose 206 MG/DL (74-106); Potassium 3.9 MMOL/L (3.5-5.1); Sodium 136 MMOL/L (136-145); Total Protein 7.3 G/DL (6.4-8.2)
[2022-02-20] MEDS: ACETAMINOPHEN 325 MG TABLET PO PRN (05:25)
[2022-02-20] MEDS: INSULIN LISPRO 100 UNIT/ML SUBCUT SCH ×4 (12:00→21:10)
[2022-02-20] MEDS: SEVELAMER CARBONATE 800 MG TABLET PO SCH ×3 (12:00→16:56)
[2022-02-20] MEDS ORDERED: fentaNYL 100 MCG/2 ML VIAL ONE (13:19)
[2022-02-20] MEDS ORDERED: MIDAZOLAM 2 MG/2 ML VIAL ONE (13:20)
[2022-02-20] MEDS ORDERED: KETAMINE 500 MG/10 ML VIAL ONE (13:20)
[2022-02-20] MEDS ORDERED: SODIUM CHLORIDE 0.9% 250 ML IV SCH (13:30)
[2022-02-20] MEDS ORDERED: propofoL 200 MG/20 ML VIAL IV ONE (13:42)
[2022-02-20] MEDS ORDERED: SODIUM CHLORIDE 0.9% 100 ML IV ONE (13:42)
[2022-02-20] MEDS ORDERED: LIDOCAINE 2% 5 ML VIAL ONE (13:42)
[2022-02-20] MEDS ORDERED: ceFAZolin 1,000 MG VIAL ONE (13:42)
[2022-02-20] MEDS ORDERED: PROMETHAZINE INJ 25 MG in SODIUM CHLORIDE 0.9% 50 ML IV PRN (14:00)
[2022-02-20] MEDS ORDERED: ONDANSETRON 4 MG/2 ML VIAL IV PRN (14:00)
[2022-02-20] MEDS ORDERED: MEPERIDINE 25 MG/1 ML VIAL IV PRN (14:00)
[2022-02-20] MEDS ORDERED: HYDROmorphone 1 MG/1 ML SYRINGE IV PRN (14:00)
[2022-02-20] MEDS ORDERED: diphenhydrAMINE 50 MG/1 ML VIAL IV PRN (14:00)
[2022-02-20] MEDS: PIPERACILLIN/TAZOBACTAM 3,375 MG in SODIUM CHLORIDE 0.9% 100 ML IV SCH ×2 (14:22→21:10)
[2022-02-20] MEDS: carvediloL 12.5 MG TABLET PO SCH ×2 (14:22→16:56)
[2022-02-20] MEDS: PANTOPRAZOLE 40 MG VIAL IV SCH ×2 (14:23→21:10)
[2022-02-20] MEDS: SODIUM CHLORIDE 0.45% 1,000 ML IV SCH (14:23)
[2022-02-20] MEDS: ISOSORBIDE MONONITRATE 30 MG TABLET PO SCH (14:23)
[2022-02-20] MEDS: SODIUM HYPOCHLORITE 0.25% IRRIG 473 ML BOTTLE TOP SCH (14:23)
[2022-02-20] MEDS: SACUBITRIL/VALSARTAN 49-51 MG TABLET PO SCH ×2 (14:23→21:09)
[2022-02-21] MEDS: LOPERAMIDE 2 MG CAPSULE PO SCH ×4 (01:02→20:37)
[2022-02-21 05:06] LABS: Basophils % 0.5 % (0.0-0.8); Eosinophils # 0.2 10*3/uL (0.0-0.87); Eosinophils % 2.3 % (0.00-10.9); Hematocrit 24.3 VOL% (42.0-52.0); Hemoglobin 7.8 GM/DL (14.0-18.0); Immature Granulocytes % 0.4 %; Immature Granulocytes Absolute 0.03 #; Lymphocytes # 1.1 10*3/uL (1.4-4.0); Lymphocytes % 13.1 % (21.2-54.2); Mean Corpuscular HGB Conc 32.1 GM/DL (32-36); Mean Corpuscular Volume 99.2 FL (87-102); Mean Platelet Volume 10.7 FL (9.6-12.0); Monocytes % 12.1 % (1.7-12.7); Neutrophils % 71.6 % (38.7-73.9); Platelet Count 218 T/CUMM (130-400); Red Blood Count 2.45 MC/CUMM (3.8-5.5); Red Cell Distribution Width 14.1 % (9.3-17.3); White Blood Count 8.2 T/CUMM (4-12)
[2022-02-21 05:33] LABS: Albumin 1.9 G/DL (3.4-5.0); Bilirubin,Total 0.4 MG/DL (0.20-1.00); Calcium 8.6 MG/DL (8.5-10.1); Osmolality,Calculated 281.8 MOS/KG (273-304); Potassium 4.7 MMOL/L (3.5-5.1); Total Protein 7.5 G/DL (6.4-8.2)
[2022-02-21] MEDS: PANTOPRAZOLE 40 MG VIAL IV SCH ×2 (09:28→20:37)
[2022-02-21] MEDS: PIPERACILLIN/TAZOBACTAM 3,375 MG in SODIUM CHLORIDE 0.9% 100 ML IV SCH ×2 (09:29→20:42)
[2022-02-21] MEDS: SEVELAMER CARBONATE 800 MG TABLET PO SCH ×3 (09:30→17:11)
[2022-02-21] MEDS: SACUBITRIL/VALSARTAN 49-51 MG TABLET PO SCH ×2 (09:30→20:37)
[2022-02-21] MEDS: INSULIN LISPRO 100 UNIT/ML SUBCUT SCH ×4 (09:31→20:37)
[2022-02-21] MEDS: ISOSORBIDE MONONITRATE 30 MG TABLET PO SCH (09:31)
[2022-02-21] MEDS: carvediloL 12.5 MG TABLET PO SCH ×2 (09:31→16:08)
[2022-02-21] MEDS: SODIUM HYPOCHLORITE 0.25% IRRIG 473 ML BOTTLE TOP SCH (09:32)
[2022-02-21] MEDS: SODIUM CHLORIDE 0.45% 1,000 ML IV SCH (09:35)
[2022-02-22] MEDS: LOPERAMIDE 2 MG CAPSULE PO SCH ×2 (01:21→12:53)
[2022-02-22] MEDS: INSULIN LISPRO 100 UNIT/ML SUBCUT SCH ×3 (08:16→16:40)
[2022-02-22] MEDS: SACUBITRIL/VALSARTAN 49-51 MG TABLET PO SCH (12:51)
[2022-02-22] MEDS: ISOSORBIDE MONONITRATE 30 MG TABLET PO SCH (12:52)
[2022-02-22] MEDS: carvediloL 12.5 MG TABLET PO SCH ×2 (12:52→16:43)
[2022-02-22] MEDS: PANTOPRAZOLE 40 MG VIAL IV SCH (12:53)
[2022-02-22] MEDS: SEVELAMER CARBONATE 800 MG TABLET PO SCH ×3 (12:54→16:43)
[2022-02-22] MEDS: SODIUM HYPOCHLORITE 0.25% IRRIG 473 ML BOTTLE TOP SCH (15:35)
[2022-02-22 16:31] VITALS: BP 96/56
[2022-02-22] MEDS: SODIUM CHLORIDE 0.45% 1,000 ML IV SCH (16:44)
== END 2022-02-22 18:27 | disposition home or self-care (01) | DRG 239 ==
LOC: N.ED 15:57 → N.EDINP 18:00 → SUATTDRO 18:00 → N.3E 19:02
PROVIDERS: ADMIT Family Medicine; ATTEND Emergency Medicine